=== PATIENT | female | born 1980 | race Two or more races ===

== ENCOUNTER 2019-11-29 13:53 | Emergency (ER) | payer MEDICAID ==
[~2019-11-29] VITALS: Ht 157.5 cm; Wt 60.0 kg
--- NOTE | 2019-11-29 14:34 | PHYS DOC ---
General Adult EDM: Chief Complaint: ABDOMINAL PAIN IN HPI: HPI: Patient is a 39 year old female who presents with vaginal bleeding and lower abdominal pain. Patient reports bleeding with urination and abdominal pain started 2 days ago. 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 She reports that the pain is intermittent and describes it as a stabbing pain that she rates 6 out of 10. She is also reporting urinary frequency. She reports that she is approximately 4 months at the beginning of December. Her OB is Coty Hawthorne at [facility]. She is G5, P4. She denies any fevers or back pain and denies any dysuria. Review of Systems: Review of Systems: GI: abdominal pain. Denies nausea, vomiting, bloody stools or diarrhea. [] : Denies dysuria. Hematuria [] Heart Score: Risk Factors: Risk Factors: DM, Current or recent (<one month) smoker, HTN, HLP, family history of CAD, obesity. Risk Scores: Score 0 - 3: 2.5% MACE over next 6 weeks - Discharge Home Score 4 - 6: 20.3% MACE over next 6 weeks - Admit for Clinical Observation Score 7 - 10: 72.7% MACE over next 6 weeks - Early Invasive Strategies Physical Exam: PE: Constitutional: Well developed, well nourished, no acute distress, non-toxic appearance. [] HENT: Normocephalic, atraumatic, bilateral external ears normal, oropharynx moist, no oral exudates, nose normal. [] Eyes: PERRLA, EOMI, conjunctiva normal, no discharge. [] Neck: Normal range of motion, no tenderness, supple, no stridor. [] Cardiovascular:Heart rate regular rhythm, no murmur [] Lungs & Thorax: Bilateral breath sounds clear to auscultation [] Abdomen: Bowel sounds normal, soft, no tenderness, no masses, no pulsatile masses. [] Skin: Warm, dry, no erythema, no rash. [] Back: No tenderness, no CVA tenderness. [] Extremities: No tenderness, no cyanosis, no clubbing, ROM intact, no edema. [] Neurologic: Alert and oriented X 3, normal motor function, normal sensory function, no focal deficits noted. [] Psychologic: Affect normal, judgement normal, mood normal. Normal physical exam EKG: EKG: [] Radiology/Procedures: Radiology/Procedures: [] Impression: [facility] [address] [place] [address] IMAGING REPORT Signed PATIENT: LILA ALBAOUNT: [id number] : 1980 LOCATION: ER AGE: 39 SEX: F EXAM STATUS: REG ER ORD. PHYSICIAN: HUE CRUZ APRN REASON: abdominal pain in PROCEDURE: PREG MORE THAN OR EQ TO 14 WKS Exam: Ultrasound OB greater than 14 weeks Indication: Abdominal pain and Technique: Real-time grayscale and color Doppler images of the pelvis were obtained by the department metal engineering process worker. Comparisons: None FINDINGS: Within the uterus there is a single live intrauterine gestation with heart rate measured at 160 bpm. Fetus is transverse in position. measurements as follows: BPD: 3.9 cm corresponding to 17 weeks 5 days Head circumference: 13.9 cm corresponding to 17 weeks 2 days Abdominal circumference: 11.7 cm corresponding to 17 weeks 3 days Femur length: 2.4 cm corresponding to 17 weeks 2 days EDDIE: 10.7 cm Cervix length: 4.7 cm Placenta is fundal and appears normal. IMPRESSION: 1. Single live intrauterine gestation measuring 17 weeks 3 days by current ultrasound. Correlate with LMP or any prior dating ultrasound. 2. Dedicated survey is recommended at 18-20 weeks gestation. Electronically signed by: Lielani Batista MD (11/29/2019 3:59 PM) [id number] DICTATED and SIGNED BY: LEILANI BATISTA MD DATE: 11/29/19 1559 Course & Med Decision Making: Course & Med Decision Making Pertinent Labs and Imaging studies reviewed. (See chart for details) Patient is alert and oriented acting appropriately, skin is pink, warm and dry. Patient is having occasional pelvic pain there is no increase in pain with palpation. Abdomen is soft and nontender. Ultrasound shows no acute findings. Patient does not have a urinary tract infection. Patient needs to follow-up with her OB doctor as soon as possible. Blood work is unremarkable. I will give her some p.o. potassium before she leaves. [] Alexandrea Disclaimer: Alexandrea Disclaimer: This electronic medical record was generated, in whole or in part, using a voice recognition dictation system. Departure Departure Impression: Primary Impression: Abdominal pain affecting Disposition: HOME, SELF-CARE Condition: STABLE Referrals: LAURA ANTHONY MD (PCP) Patient Instructions: Abdominal Pain During Additional Instructions: Follow-up with your OB doctor as soon as possible. Make sure you are taking vitamins. Drink plenty of fluids. Justicifation of Admission Dx: Justifications for Admission: Justification of Admission Dx: N/A HUE CRUZ CONSTITUTIONAL LAW PROFESSOR Nov 29, 2019 14:34
[2019-11-29 14:44] LABS: BILIRUBIN,URINE NEGATIVE (NEG); CLARITY,URINE CLEAR; COLOR,URINE YELLOW; NITRITE,URINE NEGATIVE (NEG); PROTEIN,URINE NEGATIVE (NEG-TRACE); UROBILINOGEN,URINE 0.2 mg/dL (0.2 mg/dL)
[2019-11-29 14:49] LABS: AMPHETAMINE/METHAMPHETAMINE NEG (NEG); BARBITURATES NEG (NEG); BENZODIAZEPINES NEG (NEG); CANNABINOIDS NEG (NEG); COCAINE NEG (NEG); METHADONE NEG (NEG); OPIATES NEG (NEG); PHENCYCLIDINE NEG (NEG)
[2019-11-29 14:51] LABS: SQUAMOUS EPITHELIAL CELL,UR MANY /LPF
[2019-11-29 14:52] LABS: BACTERIA,URINE MODERATE /HPF (0-FEW); RBC,URINE RARE /HPF (0-2); WBC,URINE 0 /HPF (0-4)
[2019-11-29 14:58] LABS: BASO % 0 % (0-3); EOS # 0.1 x10^3/uL (0.0-0.7); EOS % 1 % (0-3); HEMATOCRIT 37.1 % (36.0-47.0); HEMOGLOBIN 12.9 g/dL (12.0-15.5); LYMPH # 2.4 x10^3/uL (1.0-4.8); LYMPH % 24 % (24-48); MEAN CORPUSCULAR HEMOGLOBIN 30 pg (25-35); MEAN CORPUSCULAR HGB CONC 35 g/dL (31-37); MEAN CORPUSCULAR VOLUME 86 fL (79-100); MONO # 0.4 x10^3/uL (0.0-1.1); MONO % 5 % (0-9); NEUT # 6.9 x10^3/uL (1.8-7.7); NEUT % 70 % (31-73); PLATELET COUNT 252 x10^3/uL (140-400); RED BLOOD COUNT 4.33 x10^6/uL (3.50-5.40); RED CELL DISTRIBUTION WIDTH 12.9 % (11.5-14.5); WHITE BLOOD COUNT 9.8 x10^3/uL (4.0-11.0)
[2019-11-29 15:18] LABS: CALCIUM 8.4 mg/dL (8.5-10.1); CREATININE 0.5 mg/dL (0.6-1.0); GFR 138.1; POTASSIUM 3.1 mmol/L (3.5-5.1)
[2019-11-29 15:23] LABS: ALBUMIN 2.7 g/dL (3.4-5.0); ALBUMIN/GLOBULIN RATIO 0.8 (1.0-1.7); TOTAL PROTEIN 6.1 g/dL (6.4-8.2)
[2019-11-29 15:51] LABS: TOTAL BILIRUBIN 0.1 mg/dL (0.2-1.0)
--- NOTE | 2019-11-29 16:02 | RAD ---
Exam: Ultrasound OB greater than 14 weeks Indication: Abdominal pain and Technique: Real-time grayscale and color Doppler images of the pelvis were obtained by the department senior analyst. Comparisons: None FINDINGS: Within the uterus there is a single live intrauterine gestation with heart rate measured at 160 bpm. Fetus is transverse in position. measurements as follows: BPD: 3.9 cm corresponding to 17 weeks 5 days Head circumference: 13.9 cm corresponding to 17 weeks 2 days Abdominal circumference: 11.7 cm corresponding to 17 weeks 3 days Femur length: 2.4 cm corresponding to 17 weeks 2 days EDDIE: 10.7 cm Cervix length: 4.7 cm Placenta is fundal and appears normal. IMPRESSION: 1. Single live intrauterine gestation measuring 17 weeks 3 days by current ultrasound. Correlate with LMP or any prior dating ultrasound. 2. Dedicated survey is recommended at 18-20 weeks gestation. Electronically signed by: Leilani Aceves MD (11/29/2019 3:59 PM) [id number]
[2019-11-29] MEDS ORDERED: ONDANSETRON ODT 4 MG TAB.RAPDIS. PO ONE (16:15)
[2019-11-29] MEDS ORDERED: POTASSIUM CHLORIDE 20 MEQ TABLET.ER. PO ONE (16:15)
[2019-11-29 16:39] VITALS: BP 114/60
== END 2019-11-29 16:45 | disposition home or self-care (01) ==
LOC: ER 13:53
DX: O26.892 Other specified pregnancy related conditions, second trimester (principal); R10.30 Lower abdominal pain, unspecified; O46.92 Antepartum hemorrhage, unspecified, second trimester; Z3A.17 17 weeks gestation of pregnancy
CPT/HCPCS: 36415; 76805; 80053; 80307; 81001; 81025; 85025; 85610; 87086; 99284

== ENCOUNTER 2019-12-27 07:49 | Emergency (ER) | payer MEDICAID ==
[~2019-12-27] VITALS: Ht 152.4 cm; Wt 60.0 kg
[2019-12-27] MEDS ORDERED: FLUORESCEIN OPHTH TEST STRIP. OS ONE (09:00)
[2019-12-27] MEDS ORDERED: TETRACAINE 0.5% OPHTH SOLUTION 4ML BOTTLE. OS ONE (09:00)
[2019-12-27 09:10] VITALS: BP 118/64
[2019-12-27] MEDS ORDERED: TOBR5DRO6 OS (10:03)
--- NOTE | 2019-12-27 10:03 | PHYS DOC ---
Past Medical History Past Medical History: No Pertinent History Past Surgical History: Smoking Status: Never Smoker Alcohol Use: None General Adult EDM: Chief Complaint: EYE PROBLEMS HPI: HPI: Patient is a 39 year old female who is presented to the ER for evaluation of left eye injury. Patient said a few day ago,she accidentally got a piece of trash poked her left eye, since, she felt like there is something on her left eye, even after she washed it with water. She has some blurry vision with it. She denied any problem with her . Review of Systems: Review of Systems: Constitutional: Denies fever or chills. [] Eyes: Positive for change in visual acuity. HENT: Denies nasal congestion or sore throat. [] Respiratory: Denies cough or shortness of breath. [] Cardiovascular: Denies chest pain or edema. [] GI: Denies abdominal pain, nausea, vomiting, bloody stools or diarrhea. [] : Denies dysuria. [] Musculoskeletal: Denies back pain or joint pain. [] Integument: Denies rash. [] Neurologic: Denies headache, focal weakness or sensory changes. [] Endocrine: Denies polyuria or polydipsia. [] Lymphatic: Denies swollen glands. [] Psychiatric: Denies depression or anxiety. [] Heart Score: Risk Factors: Risk Factors: DM, Current or recent (<one month) smoker, HTN, HLP, family history of CAD, obesity. Risk Scores: Score 0 - 3: 2.5% MACE over next 6 weeks - Discharge Home Score 4 - 6: 20.3% MACE over next 6 weeks - Admit for Clinical Observation Score 7 - 10: 72.7% MACE over next 6 weeks - Early Invasive Strategies Current Medications: Current Medications Medications (Trade) Dose Ordered Sig/Rola Start Time Stop Time Status Last Admin Dose Admin Fluorescein Sodium (Ful-Anna) 1 strip 1X ONCE 12/27/19 09:00 12/27/19 09:02 DC 12/27/19 09:17 1 STRIP Tetracaine HCl (Tetracaine) 2 drop 1X ONCE 12/27/19 09:00 12/27/19 09:02 DC 12/27/19 09:16 2 DROP Allergies: Allergies: Allergies Coded Allergies Type Severity Reaction Last Updated Verified No Known Drug Allergies 7/21/20 No Physical Exam: PE: Constitutional: Well developed, well nourished, no acute distress, non-toxic appearance. [] HENT: Normocephalic, atraumatic, bilateral external ears normal, oropharynx moist, no oral exudates, nose normal. [] Eyes: PERRLA, EOMI, Left conjunctival injected with abrasion, no cornea abrasion, no hyphema, no dye uptake on woodlamb exame, no discharge. [] Neck: Normal range of motion, no tenderness, supple, no stridor. [] Cardiovascular:Heart rate regular rhythm, no murmur [] Lungs & Thorax: Bilateral breath sounds clear to auscultation [] Abdomen: Bowel sounds normal, soft, no tenderness, no masses, no pulsatile masses. [] Skin: Warm, dry, no erythema, no rash. [] Back: No tenderness, no CVA tenderness. [] Extremities: No tenderness, no cyanosis, no clubbing, ROM intact, no edema. [] Neurologic: Alert and oriented X 3, normal motor function, normal sensory function, no focal deficits noted. [] Psychologic: Affect normal, judgement normal, mood normal. [] Current Patient Data: Vital Signs: Vital Signs Date Time Temp Pulse Resp B/P (MAP) Pulse Ox O2 Delivery O2 Flow Rate FiO2 12/27/19 09:10 98.6 82 18 118/64 (82) 98 98.6 EKG: EKG: [] Radiology/Procedures: Radiology/Procedures: [] Course & Med Decision Making: Course & Med Decision Making Pertinent Labs and Imaging studies reviewed. (See chart for details) visual acuity OS 20/40. OD 20/20. BOTH EYE 20/30 Dragon Disclaimer: DOZ Disclaimer: This electronic medical record was generated, in whole or in part, using a voice recognition dictation system. Departure Departure Impression: Primary Impression: Conjunctival abrasion Disposition: 01 HOME, SELF-CARE Condition: STABLE Referrals: LAURA ANTHONY MD (PCP) Deja WHYTE MD PLEASE CALL THIS EYE DOCTOR FOR FOLLOW UP THIS WEEK Patient Instructions: Subconjunctival Hemorrhage Additional Instructions: Thank you for visiting our Emergency Department. We appreciate you trusting us with your care. If any additional problems come up don't hesitate to return to visit us. Please follow up with your primary care provider so they can plan additional care if needed and know about the problem that you had. If symptoms worsen come back to the Emergency Department. Any concerning symptoms that start such as chest pain, shortness of air, weakness or numbness on one side of the body, running high fevers or any other concerning symptoms return to the ER. Scripts Tobramycin (TOBRAMYCIN) 5 Ml Drops 2 DROP OS QID for 7 Days, #5 ML 0 Refills Prov: ALEX RIVAS DO 12/27/19 Justicifation of Admission Dx: Justifications for Admission: Justification of Admission Dx: N/A ALEX RIVAS DO Dec 27, 2019 10:03
== END 2019-12-27 10:23 | disposition home or self-care (01) ==
LOC: ER 07:49
DX: O26.891 Other specified pregnancy related conditions, first trimester (principal); S05.02XA Injury of conjunctiva and corneal abrasion without foreign body, left eye, initial encounter; H53.8 Other visual disturbances; Y29.XXXA Contact with blunt object, undetermined intent, initial encounter; Y93.89 Activity, other specified; Y92.89 Other specified places as the place of occurrence of the external cause; Y99.8 Other external cause status; Z3A.00 Weeks of gestation of pregnancy not specified
CPT/HCPCS: 99283

== ENCOUNTER 2020-10-26 13:44 | Emergency (ER) | payer MEDICAID ==
[~2020-10-26] VITALS: Ht 160 cm; Wt 56.0 kg
[~2020-10-26 13:44] MED LIST: TOBR5DRO6 OS
[2020-10-26 15:46] LABS: BASO % 0 % (0-3); EOS % 0 % (0-3); HEMATOCRIT 40.9 % (36.0-47.0); HEMOGLOBIN 14.1 g/dL (12.0-15.5); LYMPH # 2.1 x10^3/uL (1.0-4.8); LYMPH % 21 % (24-48); MEAN CORPUSCULAR HEMOGLOBIN 29 pg (25-35); MEAN CORPUSCULAR HGB CONC 35 g/dL (31-37); MEAN CORPUSCULAR VOLUME 85 fL (79-100); MONO # 0.5 x10^3/uL (0.0-1.1); MONO % 5 % (0-9); NEUT # 7.5 x10^3/uL (1.8-7.7); NEUT % 74 % (31-73); PLATELET COUNT 316 x10^3/uL (140-400); RED BLOOD COUNT 4.84 x10^6/uL (3.50-5.40); RED CELL DISTRIBUTION WIDTH 13.3 % (11.5-14.5); WHITE BLOOD COUNT 10.1 x10^3/uL (4.0-11.0)
--- NOTE | 2020-10-26 17:10 | RAD ---
EXAMINATION: US OB <14 WKS (PELVIC ULTRASOUND) HISTORY: Vaginal bleeding, . TECHNIQUE: Sonography of the pelvis was performed by transvaginal and transabdominal (limited) techni ques. COMPARISON: None FINDINGS: Uterus: 10.8 x 5.7 x 5.5 cm, no gestational sac visualized. - Myometrium: Normal sonographic appearance. - Endometrium: 14 mm - Cervix: Normal Right ovary: 1.9 x 1.9 x 1.0 cm - Normal sonographic appearance. Arterial and venous flow is present throughout the ovary on color Do ppler imaging with normal spectral waveforms. Left ovary: 2.6 x 2.3 x 1.7 cm - Normal sonographic appearance. Arterial and venous flow is present throughout the left ovary on col or Doppler imaging with normal spectral waveforms. Pelvic free fluid: None. IMPRESSION: Unremarkable pelvic ultrasound. No intrauterine gestational sac visualized. Electronically signed by: Xvaier Mcclelland DO (10/26/2020 5:08 PM) [facility]
--- NOTE | 2020-10-26 17:27 | ED.ADGEN ---
Past Medical History Past Medical History: No Pertinent History Past Surgical History: Smoking Status: Never Smoker Alcohol Use: None General Adult EDM: Chief Complaint: VAGINAL BLEEDING HPI: HPI: Patient is a 40 year old [place] female who presents emergency department with complaints of vaginal bleeding that began yesterday. Patient states that yesterday her bleeding was only spotting, today the bleeding became more heavy especially over the last hour. Patient states that she is G6, P5, AB 0. She denies any abdominal pain, nausea, vomiting, back pain, fever, cough, sore throat, or body aches. Patient denies any abnormal vaginal discharge prior to the onset of the bleeding. She denies any dysuria, hematuria, or difficulty voiding. Patient currently rates her pain a 7 out of 10 on the pain scale, she describes it as a cramping sensation. She reports her last menstrual cycle was 2 months ago and that she took a positive test about a month ago. Patient denies having any OB care for this prior to today's visit. Review of Systems: Review of Systems: Complete ROS is negative unless otherwise noted in HPI. Allergies: Allergies: Allergies Coded Allergies Type Severity Reaction Last Updated Verified No Known Drug Allergies 12/27/19 No Physical Exam: PE: See Above Constitutional: Well developed, well nourished, no acute distress, non-toxic appearance. HENT: Normocephalic, atraumatic, bilateral external ears normal, nose normal. Eyes: PERRLA, EOMI, conjunctiva normal, no discharge. Neck: Normal range of motion, no stridor. Cardiovascular: Heart rate regular rhythm Lungs & Thorax: Respirations even and unlabored, no retractions, no respiratory distress Pelvic Exam: Diesel Truck Technician present Alysha LIZ Abdomen: Nontender, soft External Genitalia: Normal Skin Speculum: Normal vaginal mucosa, os open, bloody discharge from the cervix, clots present in the vaginal vault Bimanual: Deferred Skin: Warm, dry, no erythema, no rash. Extremities: No cyanosis, ROM intact, no edema. Neurologic: Alert and oriented X 3, no focal deficits noted. Psychologic: Affect normal, judgement normal, mood normal. Current Patient Data: Labs: Laboratory Tests Test 10/26/20 15:34 White Blood Count 10.1 x10^3/uL (4.0-11.0) Red Blood Count 4.84 x10^6/uL (3.50-5.40) Hemoglobin 14.1 g/dL (12.0-15.5) Hematocrit 40.9 % (36.0-47.0) Mean Corpuscular Volume 85 fL (79-100) Mean Corpuscular Hemoglobin 29 pg (25-35) Mean Corpuscular Hemoglobin Concent 35 g/dL (31-37) Red Cell Distribution Width 13.3 % (11.5-14.5) Platelet Count 316 x10^3/uL (140-400) Neutrophils (%) (Auto) 74 % (31-73) H Lymphocytes (%) (Auto) 21 % (24-48) L Monocytes (%) (Auto) 5 % (0-9) Eosinophils (%) (Auto) 0 % (0-3) Basophils (%) (Auto) 0 % (0-3) Neutrophils # (Auto) 7.5 x10^3/uL (1.8-7.7) Lymphocytes # (Auto) 2.1 x10^3/uL (1.0-4.8) Monocytes # (Auto) 0.5 x10^3/uL (0.0-1.1) Eosinophils # (Auto) 0.0 x10^3/uL (0.0-0.7) Basophils # (Auto) 0.0 x10^3/uL (0.0-0.2) Maternal Serum HCG Beta Subunit 5564 mIU/mL (0-5) H Laboratory Tests 10/26/20 15:34 Vital Signs: Vital Signs Date Time Temp Pulse Resp B/P (MAP) Pulse Ox O2 Delivery O2 Flow Rate FiO2 10/26/20 15:14 98.7 90 12 139/75 (96) 98 Room Air 98.7 EKG: EKG: [] Heart Score: C/O Chest Pain: No Risk Scores: Score 0 - 3: 2.5% MACE over next 6 weeks - Discharge Home Score 4 - 6: 20.3% MACE over next 6 weeks - Admit for Clinical Observation Score 7 - 10: 72.7% MACE over next 6 weeks - Early Invasive Strategies Radiology/Procedures: Radiology/Procedures: PROCEDURE: PREG 1ST TRIMESTER EXAMINATION: US OB <14 WKS (PELVIC ULTRASOUND) HISTORY: Vaginal bleeding, . TECHNIQUE: Sonography of the pelvis was performed by transvaginal and transabdominal (limited) techniques. COMPARISON: None FINDINGS: Uterus: 10.8 x 5.7 x 5.5 cm, no gestational sac visualized. - Myometrium: Normal sonographic appearance. - Endometrium: 14 mm - Cervix: Normal Right ovary: 1.9 x 1.9 x 1.0 cm - Normal sonographic appearance. Arterial and venous flow is present throughout the ovary on color Doppler imaging with normal spectral waveforms. Left ovary: 2.6 x 2.3 x 1.7 cm - Normal sonographic appearance. Arterial and venous flow is present throughout the left ovary on color Doppler imaging with normal spectral waveforms. Pelvic free fluid: None. IMPRESSION: Unremarkable pelvic ultrasound. No intrauterine gestational sac visualized. [] Course & Med Decision Making: Course & Med Decision Making Pertinent Labs and Imaging studies reviewed. (See chart for details) [] Dragon Disclaimer: Dragon Disclaimer: This electronic medical record was generated, in whole or in part, using a voice recognition dictation system. Departure Departure Impression: Primary Impression: Complete miscarriage Disposition: 01 HOME / SELF CARE / HOMELESS Condition: STABLE Referrals: SILVINO RODRÍGUEZ MD Patient Instructions: Miscarriage, [id number] Additional Instructions: You may take Tylenol or ibuprofen as needed for pain. Follow-up with Dr. Rodríguez or your DIRECTOR RADIATION ONCOLOGY for repeat evaluation next week, return to the ER if your symptoms worsen or fever develops. LAURA WALTER SUPERVISOR WRAPPING ROOM October 26, 2020 17:27
[2020-10-26 17:30] VITALS: BP 126/63
== END 2020-10-26 17:45 | disposition home or self-care (01) ==
LOC: ER 13:44
DX: O03.9 Complete or unspecified spontaneous abortion without complication (principal); Z98.890 Other specified postprocedural states
CPT/HCPCS: 36415; 76801; 84702; 85025; 99285